=== PATIENT | female | born 1960 | race Caucasian/White ===

== ENCOUNTER 2021-12-22 07:57 | Day surgery (SDC) | payer MEDICAID, OTHER ==
[~2021-12-22 07:57] MED LIST: Lactated Ringers 1,000 ML IV SCH; propofoL 50 ML ONE
[2021-12-22] MEDS ORDERED: fentaNYL 100 MCG/2 ML SDV ONE (08:14)
[2021-12-22] MEDS ORDERED: Lidocaine 2% 5 ML SDV ONE (08:14)
== END 2021-12-22 10:15 | disposition home or self-care (01) ==
LOC: MW.SDS 07:57
PROVIDERS: ATTEND Surgery
DX: Z12.11 Encounter for screening for malignant neoplasm of colon (principal); K29.50 Unspecified chronic gastritis without bleeding; K31.89 Other diseases of stomach and duodenum; G43.909 Migraine, unspecified, not intractable, without status migrainosus; F17.210 Nicotine dependence, cigarettes, uncomplicated; Z79.899 Other long term (current) drug therapy; Z98.890 Other specified postprocedural states; Z90.49 Acquired absence of other specified parts of digestive tract
CPT/HCPCS: 43239; 45378; J2704; J3010; J7120; 00813